=== PATIENT | female | born 1985 | race Two or more races ===

== ENCOUNTER 2023-01-03 04:02 | Emergency (ER) | payer MEDICAID ==
[~2023-01-03] VITALS: Ht 152.4 cm; Wt 68.0 kg
--- NOTE | 2023-01-03 04:35 | NUR ---
Dr. Whelan evaluating patient at bedside. MSE in progress.
[2023-01-03] MEDS ORDERED: HYDROCODONE/APAP 5-325MG TABLET ONE (04:54)
--- NOTE | 2023-01-03 04:59 | NUR ---
Lab at bedside.
[2023-01-03] MEDS ORDERED: HYDROCODONE/APAP 5-325MG TABLET PO ONE (05:00)
[2023-01-03 05:07] LABS: MEAN CORPUSCULAR VOLUME 87.8 fL (75.5-95.3); PLATELET COUNT (AUTO) 228 K/uL (179-408)
[2023-01-03 05:14] LABS: CREATININE 0.8 mg/dL (0.6-1.3); POTASSIUM 3.6 mmol/L (3.5-5.1)
--- NOTE | 2023-01-03 06:00 | NUR ---
Patient resting comfortably in bed, no signs of distress noted.
[2023-01-03] MEDS ORDERED: HYDR-3972 PO (06:24)
[2023-01-03] MEDS ORDERED: IBUP-1953 PO (06:24)
--- NOTE | 2023-01-03 07:01 | NUR ---
Report given to Randal ARMSTRONG
--- NOTE | 2023-01-03 08:55 | NUR ---
Gave pt breakfast tray to pt. Shortly afterwards, pt c/o sudden dizziness. Pt placed in trendelenberg, MD SHAMA informed.
[2023-01-03] MEDS ORDERED: IV NORMAL SALINE 1000 ML BAG IV ONE (09:15)
--- NOTE | 2023-01-03 10:20 | NUR ---
Pt sleeping in bed, no distress noted.
[2023-01-03] MEDS ORDERED: IBUPROFEN 400 MG TABLET PO ONE (12:45)
[2023-01-03] MEDS ORDERED: IBUPROFEN 400 MG TABLET ONE (12:52)
--- NOTE | 2023-01-03 12:55 | NUR ---
Removed IV intact, site okay, bandaged. Gave pt RX and d/c instructions, pt verbalized understanding.
[2023-01-03 12:56] VITALS: BP 113/74
== END 2023-01-03 12:58 | disposition home or self-care (01) ==
LOC: ER 04:02
DX: N64.4 Mastodynia (principal); N63.0 Unspecified lump in unspecified breast; Z88.8 Allergy status to other drugs, medicaments and biological substances; Z88.2 Allergy status to sulfonamides
CPT/HCPCS: 99284; 96360; 80048; 85025; 36415; 76642; J7040; A4663

== ENCOUNTER 2023-07-03 14:30 | Emergency (ER) | payer BC, MEDICAID ==
[~2023-07-03] VITALS: Ht 152.4 cm; Wt 72.6 kg
[~2023-07-03 14:30] MED LIST: HYDR-3972 PO; HYDR50CA PO; IBUP-1953 PO; PRED50TA PO
[2023-07-03 14:50] VITALS: O2SAT 100
[2023-07-03 15:58] LABS: BASOPHILS % (AUTO) 0.3 % (0.0-2.0); EOSINOPHILS # (AUTO) 0.2 K/uL (0.0-0.7); EOSINOPHILS % (AUTO) 2.6 % (0.0-7.0); HEMATOCRIT 36.4 % (31.2-41.9); LYMPHOCYTES # (AUTO) 1.6 K/uL (0.8-4.8); LYMPHOCYTES % (AUTO) 18.5 % (20.5-51.5); MEAN CORPUSCULAR HEMOGLOBIN 27.1 uug (24.7-32.8); MEAN CORPUSCULAR HGB CONC 33 g/dL (32.3-35.6); MEAN CORPUSCULAR VOLUME 82.5 fL (75.5-95.3); MONOCYTES # (AUTO) 0.6 K/uL (0.1-1.30); MONOCYTES % (AUTO) 6.7 % (0.0-11.0); NEUTROPHILS # (AUTO) 6.2 K/uL (1.8-8.9); NEUTROPHILS % (AUTO) 71.9 % (38.5-71.5); PLATELET COUNT (AUTO) 206 K/uL (179-408); RED BLOOD CELL COUNT(AUTO) 4.41 MIL/uL (3.63-4.92); RED CELL DISTRIBUTION WIDTH 15.2 % (12.3-17.7); WHITE BLOOD COUNT (AUTO) 8.6 K/uL (3.8-11.8)
[2023-07-03 16:21] LABS: DIFFERENTIAL COMMENT 1
[2023-07-03 16:22] LABS: CALCIUM 9.6 mg/dL (8.5-10.1); CARBON DIOXIDE 28 mmol/L (21-32); CHLORIDE 105 mmol/L (98-107); CREATININE 0.8 mg/dL (0.6-1.3); GLUCOSE 100 mg/dL (74-106); POTASSIUM 3.5 mmol/L (3.5-5.1); SODIUM SERUM 143 mmol/L (136-145); UREA NITROGEN, BLOOD 22 mg/dL (7-18)
[2023-07-03] MEDS ORDERED: CLINDAMYCIN HCL 150 MG CAPSULE PO ONE (16:30)
[2023-07-03 16:31] LABS: ALANINE AMINOTRANSFERASE 24 U/L (14-59); ALBUMIN 3.9 g/dL (3.4-5.0); ALKALINE PHOSPHATASE 71 U/L (50-136); ASPARTATE AMINOTRANSFERASE 14 U/L (15-37); BILIRUBIN,DIRECT 0.2 mg/dL (0.0-0.2); BILIRUBIN,TOTAL 0.7 mg/dL (0.2-1.0); TOTAL PROTEIN, SERUM 7.7 g/dL (6.4-8.2)
[2023-07-03] MEDS ORDERED: HYDROCODONE/APAP 5-325MG TABLET PO ONE ×2 (16:45→17:30)
[2023-07-03] MEDS ORDERED: CLINDAMYCIN HCL 300 MG CAPSULE ONE (16:49)
[2023-07-03] MEDS ORDERED: HYDROCODONE/APAP 5-325MG TABLET ONE ×2 (16:50→17:39)
[2023-07-03] MEDS ORDERED: CLIN300C12 PO (17:30)
[2023-07-03] MEDS ORDERED: HYDR-3980 PO (17:30)
== END 2023-07-03 18:10 | disposition home or self-care (01) ==
LOC: ER 14:30
DX: L08.9 Local infection of the skin and subcutaneous tissue, unspecified (principal); R07.89 Other chest pain; Z88.1 Allergy status to other antibiotic agents; Z88.2 Allergy status to sulfonamides; Z79.1 Long term (current) use of non-steroidal anti-inflammatories (NSAID); Z79.2 Long term (current) use of antibiotics; Z79.899 Other long term (current) drug therapy
CPT/HCPCS: 36415; 71045; 76642; 83605; 84484; 85025; 85730; 87040; A4606; A4663

== ENCOUNTER 2023-07-05 00:26 | Emergency (ER) | payer BC ==
[~2023-07-05] VITALS: Ht 149.9 cm; Wt 71.7 kg
[~2023-07-05 00:26] MED LIST changes: +CLIN300C12 PO; +HYDR-3980 PO
[2023-07-05] MEDS ORDERED: DEXAMETHASONE 0.5 MG/5 ML LIQ UDC PO ONE (01:00)
[2023-07-05] MEDS ORDERED: diphenhydrAMINE 50 MG CAPSULE PO ONE (01:00)
[2023-07-05] MEDS ORDERED: EPINEPHRINE 1 MG/1 ML 30 ML VIAL IM ONE ×2 (01:00→04:45)
[2023-07-05] MEDS ORDERED: FAMOTIDINE 20 MG TABLET PO ONE (01:00)
[2023-07-05] MEDS ORDERED: DEXAMETHASONE SOD PHOSPHATE 10 MG INJ ONE (01:32)
[2023-07-05] MEDS ORDERED: DEXAMETHASONE 4 MG TABLET ONE (01:49)
[2023-07-05] MEDS ORDERED: ACETAMINOPHEN ES 500 MG TABLET PO ONE (04:15)
[2023-07-05] MEDS ORDERED: EPINEPHRINE 1:10,000 1 MG/10 ML DISP.SYRIN ONE (05:11)
[2023-07-05] MEDS ORDERED: EPINEPHRINE-PF 1:1000 1 MG/ML AMPUL/VIAL ONE (05:14)
[2023-07-05] MEDS ORDERED: PRED20TA PO (06:06)
[2023-07-05] MEDS ORDERED: DIPH25TA25 PO (06:06)
[2023-07-05 06:14] VITALS: BP 139/74; O2SAT 95
== END 2023-07-05 06:15 | disposition home or self-care (01) ==
LOC: ER 00:29
DX: T78.3XXA Angioneurotic edema, initial encounter (principal); R22.0 Localized swelling, mass and lump, head; Z88.2 Allergy status to sulfonamides; Z88.8 Allergy status to other drugs, medicaments and biological substances; Z79.2 Long term (current) use of antibiotics; Z79.1 Long term (current) use of non-steroidal anti-inflammatories (NSAID); Z79.899 Other long term (current) drug therapy
CPT/HCPCS: 99284; 96372; J8540 ×2; Q0163; J0171 ×2; A4606; A4663; A9150; J1100

== ENCOUNTER 2023-08-22 12:09 | Inpatient (IN) | payer MEDICAID ==
[~2023-08-22] VITALS: Ht 152.4 cm; Wt 68.0 kg
[~2023-08-22 12:09] MED LIST changes: +DIPH25TA25 PO; +PRED20TA PO
[2023-08-22] MEDS ORDERED: HYDROMORPHONE 1 MG/1 ML DISP.SYRIN IV ONE ×4 (13:15→17:45)
[2023-08-22] MEDS ORDERED: IV NORMAL SALINE 1000 ML BAG IV ONE (13:15)
[2023-08-22] MEDS ORDERED: ONDANSETRON 4 MG/2 ML VIAL IV ONE (13:15)
[2023-08-22 13:33] LABS: BASOPHILS % (AUTO) 0.2 % (0.0-2.0); DIFFERENTIAL COMMENT 0; EOSINOPHILS % (AUTO) 0.1 % (0.0-7.0); HEMATOCRIT 37.9 % (31.2-41.9); HEMOGLOBIN 12.5 g/dL (10.9-14.3); LYMPHOCYTES # (AUTO) 0.7 K/uL (0.8-4.8); MEAN CORPUSCULAR HEMOGLOBIN 27.8 uug (24.7-32.8); MEAN CORPUSCULAR HGB CONC 33 g/dL (32.3-35.6); MEAN CORPUSCULAR VOLUME 84.4 fL (75.5-95.3); MONOCYTES # (AUTO) 0.2 K/uL (0.1-1.30); MONOCYTES % (AUTO) 1.6 % (0.0-11.0); NEUTROPHILS # (AUTO) 9.2 K/uL (1.8-8.9); NEUTROPHILS % (AUTO) 91.1 % (38.5-71.5); PLATELET COUNT (AUTO) 220 K/uL (179-408); RED BLOOD CELL COUNT(AUTO) 4.49 MIL/uL (3.63-4.92); RED CELL DISTRIBUTION WIDTH 15.1 % (12.3-17.7); WHITE BLOOD COUNT (AUTO) 10.1 K/uL (3.8-11.8)
[2023-08-22 13:51] LABS: ALBUMIN 4.1 g/dL (3.4-5.0); BILIRUBIN,DIRECT 0.2 mg/dL (0.0-0.2); BILIRUBIN,TOTAL 0.8 mg/dL (0.2-1.0); CREATININE 1.2 mg/dL (0.6-1.3); TOTAL PROTEIN, SERUM 7.7 g/dL (6.4-8.2)
[2023-08-22] MEDS ORDERED: ONDANSETRON 4 MG/2 ML VIAL ONE (14:04)
[2023-08-22] MEDS ORDERED: HYDROMORPHONE 1 MG/1 ML DISP.SYRIN ONE ×3 (14:04→17:48)
[2023-08-22 15:15] LABS: *BILIRUBIN,URIN NEGATIVE (NEGATIVE); *BLOOD, URINE 3+ (NEGATIVE); *CLARITY,URINE CLEAR (CLEAR); *COLOR,URINE YELLOW (YELLOW); *KETONES,URINE 2+ (NEGATIVE); *PROTEIN,URINE 1+ (NEGATIVE); *UROBILINOGEN,URINE 0.2 E.U./dl (NORMAL); LEUKOCYTE ESTERASE ,URINE NEGATIVE (NEGATIVE); NITRITE, URINE NEGATIVE (NEGATIVE); UGLUCOSE NEGATIVE (NEGATIVE)
[2023-08-22 15:23] LABS: BACTERIA,URINE FEW /HPF (NONE SEEN); RBC,URINE 80-100 /HPF (0-3); SQUAMOUS EPITHELIAL CELL,UR MODERATE /HPF (NONE SEEN)
[2023-08-22] MEDS ORDERED: KETOROLAC TROMETHAMINE 30 MG INJ ONE (15:25)
[2023-08-22] MEDS ORDERED: KETOROLAC TROMETHAMINE 30 MG INJ IVP ONE (15:30)
[2023-08-22] MEDS ORDERED: IV NS 1000 ML 1,000 ML IV ONE ×2 (15:30→17:45)
[2023-08-22] MEDS ORDERED: PROC-11 PO (16:05)
[2023-08-22] MEDS ORDERED: KETO10TA2 PO (16:05)
[2023-08-22] MEDS ORDERED: HYDR-3980 PO (16:05)
[2023-08-22] MEDS ORDERED: HYDROMORPHONE 2 MG/1 ML DISP.SYRIN ONE (16:21)
[2023-08-22] MEDS: GENTAMICIN SULFATE 20 MG/2 ML VIAL IV ONE ×2 (17:45→18:33)
[2023-08-22] MEDS ORDERED: diphenhydrAMINE 50 MG/1 ML VIAL IV ONE (17:45)
[2023-08-22] MEDS ORDERED: GENTAMICIN SULFATE 80 MG/2 ML VIAL ONE (17:47)
[2023-08-22] MEDS ORDERED: diphenhydrAMINE 50 MG/1 ML VIAL ONE (17:47)
[2023-08-22] MEDS ORDERED: GENTAMICIN SULFATE INJ 120 MG in IV DEXTROSE 5% 100 ML IV ONE (19:00)
[2023-08-22] MEDS ORDERED: TAMSULOSIN HCL 0.4 MG CAP.SR.24H PO ONE (19:30)
[2023-08-22] MEDS ORDERED: ONDANSETRON 4 MG/2 ML VIAL IV PRN (19:30)
[2023-08-22] MEDS ORDERED: MAGNESIUM HYDROXIDE 30 ML LIQUID UDC PO PRN (19:30)
[2023-08-22] MEDS ORDERED: REMEDY ESSENTIAL ZINC PASTE 113 GM TP PRN (19:30)
[2023-08-22] MEDS: MORPHINE SULFATE 2 MG/1 ML DISP.SYRIN IV PRN (21:12)
[2023-08-22 21:24] VITALS: BP 102/63; TEMP 98.5; O2SAT 100
[2023-08-22] MEDS: IV NS 1000 ML 1,000 ML IV PRN (22:25)
[2023-08-23] MEDS: HYDROCODONE/APAP 5-325MG TABLET PO PRN (00:09)
[2023-08-23] MEDS: MORPHINE SULFATE 2 MG/1 ML DISP.SYRIN IV PRN ×2 (03:43→15:39)
[2023-08-23 04:10] VITALS: BP 93/58; TEMP 98; O2SAT 93
[2023-08-23] MEDS: IV NS 1000 ML 1,000 ML IV PRN ×2 (06:47→18:46)
[2023-08-23 07:34] LABS: BASOPHILS % (AUTO) 0.5 % (0.0-2.0); EOSINOPHILS # (AUTO) 0.1 K/uL (0.0-0.7); EOSINOPHILS % (AUTO) 0.8 % (0.0-7.0); HEMATOCRIT 31.4 % (31.2-41.9); HEMOGLOBIN 10.6 g/dL (10.9-14.3); LYMPHOCYTES # (AUTO) 1.8 K/uL (0.8-4.8); MEAN CORPUSCULAR HEMOGLOBIN 28.7 uug (24.7-32.8); MEAN CORPUSCULAR HGB CONC 34 g/dL (32.3-35.6); MEAN CORPUSCULAR VOLUME 85.4 fL (75.5-95.3); MONOCYTES # (AUTO) 0.4 K/uL (0.1-1.30); MONOCYTES % (AUTO) 6.2 % (0.0-11.0); NEUTROPHILS % (AUTO) 63.5 % (38.5-71.5); PLATELET COUNT (AUTO) 186 K/uL (179-408); RED BLOOD CELL COUNT(AUTO) 3.68 MIL/uL (3.63-4.92); RED CELL DISTRIBUTION WIDTH 15.4 % (12.3-17.7); WHITE BLOOD COUNT (AUTO) 6.4 K/uL (3.8-11.8)
[2023-08-23 07:49] LABS: CALCIUM 7.6 mg/dL (8.5-10.1); CREATININE 1.3 mg/dL (0.6-1.3); PHOSPHOROUS 2.7 mg/dL (2.5-4.9); POTASSIUM 3.9 mmol/L (3.5-5.1)
[2023-08-23 08:11] LABS: DIFFERENTIAL COMMENT 1
[2023-08-23] MEDS: MEROPENEM 0.5 G in IV NORMAL SALINE 50 ML IV SCH ×2 (09:34→21:21)
[2023-08-23] MEDS: KETOROLAC TROMETHAMINE 15 MG INJ IVP PRN ×2 (09:38→17:55)
[2023-08-23] MEDS ORDERED: DEXTROSE 5% IV ONE (11:00)
[2023-08-23] MEDS ORDERED: GENTAMICIN SULFATE IV ONE (11:00)
[2023-08-23 11:38] VITALS: BP 111/61; TEMP 97.8; O2SAT 95
[2023-08-23 15:52] VITALS: BP 106/56; TEMP 98.5; O2SAT 97
[2023-08-23 16:21] LABS: *BILIRUBIN,URIN NEGATIVE (NEGATIVE); *BLOOD, URINE 2+ (NEGATIVE); *CLARITY,URINE CLEAR (CLEAR); *COLOR,URINE YELLOW (YELLOW); *KETONES,URINE NEGATIVE (NEGATIVE); *PROTEIN,URINE 1+ (NEGATIVE); *UROBILINOGEN,URINE 0.2 E.U./dl (NORMAL); LEUKOCYTE ESTERASE ,URINE NEGATIVE (NEGATIVE); NITRITE, URINE NEGATIVE (NEGATIVE); UGLUCOSE NEGATIVE (NEGATIVE)
[2023-08-23 16:28] LABS: *URINE HCG, QUAL NEGATIVE (NEGATIVE)
[2023-08-23 16:29] LABS: BACTERIA,URINE FEW /HPF (NONE SEEN); RBC,URINE 20-50 /HPF (0-3); SQUAMOUS EPITHELIAL CELL,UR FEW /HPF (NONE SEEN); WBC,URINE 0-3 /HPF (0-3)
[2023-08-23 19:00] VITALS: BP 105/59; TEMP 98.3
[2023-08-23] MEDS: TAMSULOSIN HCL 0.4 MG CAP.SR.24H PO SCH (21:21)
[2023-08-24] MEDS: MORPHINE SULFATE 2 MG/1 ML DISP.SYRIN IV PRN (02:43)
[2023-08-24 04:00] VITALS: BP 106/58; TEMP 98.3
[2023-08-24] MEDS: IV NS 1000 ML 1,000 ML IV PRN ×2 (07:26→18:03)
[2023-08-24 08:05] LABS: CREATININE 1.2 mg/dL (0.6-1.3); POTASSIUM 4.5 mmol/L (3.5-5.1)
[2023-08-24] MEDS: MEROPENEM 0.5 G in IV NORMAL SALINE 50 ML IV SCH ×2 (09:17→20:13)
[2023-08-24] MEDS: KETOROLAC TROMETHAMINE 15 MG INJ IVP PRN (09:25)
[2023-08-24 11:35] VITALS: BP 120/57; TEMP 97.8; O2SAT 97
[2023-08-24] MEDS ORDERED: KETOROLAC TROMETHAMINE 15 MG INJ IVP PRN (13:45)
[2023-08-24] MEDS ORDERED: MORPHINE SULFATE 2 MG/1 ML DISP.SYRIN IV PRN (14:30)
[2023-08-24 15:54] VITALS: BP 134/76; TEMP 98.4; O2SAT 98
[2023-08-24 20:00] VITALS: BP 119/67; TEMP 97.9; O2SAT 95
[2023-08-24] MEDS: TAMSULOSIN HCL 0.4 MG CAP.SR.24H PO SCH (20:12)
[2023-08-24] MEDS: DIAZEPAM 10 MG/2 ML DISP.SYRIN IV SCH (23:06)
[2023-08-24] MEDS: KETOROLAC TROMETHAMINE 15 MG INJ IVP SCH (23:07)
[2023-08-25] MEDS: IV NS 1000 ML 1,000 ML IV PRN ×2 (01:33→15:21)
[2023-08-25 04:00] VITALS: BP 135/62; TEMP 97.5; O2SAT 94
[2023-08-25] MEDS: KETOROLAC TROMETHAMINE 15 MG INJ IVP SCH ×3 (05:38→18:26)
[2023-08-25 07:39] LABS: BASOPHILS % (AUTO) 0.4 % (0.0-2.0); EOSINOPHILS # (AUTO) 0.3 K/uL (0.0-0.7); EOSINOPHILS % (AUTO) 4.7 % (0.0-7.0); HEMATOCRIT 32.4 % (31.2-41.9); HEMOGLOBIN 10.9 g/dL (10.9-14.3); LYMPHOCYTES # (AUTO) 1.7 K/uL (0.8-4.8); LYMPHOCYTES % (AUTO) 27.3 % (20.5-51.5); MEAN CORPUSCULAR HEMOGLOBIN 28.4 uug (24.7-32.8); MEAN CORPUSCULAR HGB CONC 34 g/dL (32.3-35.6); MEAN CORPUSCULAR VOLUME 84.6 fL (75.5-95.3); MONOCYTES # (AUTO) 0.3 K/uL (0.1-1.30); MONOCYTES % (AUTO) 4.5 % (0.0-11.0); NEUTROPHILS % (AUTO) 63.1 % (38.5-71.5); PLATELET COUNT (AUTO) 187 K/uL (179-408); RED BLOOD CELL COUNT(AUTO) 3.83 MIL/uL (3.63-4.92); RED CELL DISTRIBUTION WIDTH 15.2 % (12.3-17.7); WHITE BLOOD COUNT (AUTO) 6.4 K/uL (3.8-11.8)
[2023-08-25 07:41] LABS: CALCIUM 8.1 mg/dL (8.5-10.1); CREATININE 1.2 mg/dL (0.6-1.3); POTASSIUM 3.8 mmol/L (3.5-5.1)
[2023-08-25 07:44] LABS: DIFFERENTIAL COMMENT 1
[2023-08-25] MEDS: MEROPENEM 0.5 G in IV NORMAL SALINE 50 ML IV SCH ×2 (09:06→21:34)
[2023-08-25 11:16] VITALS: BP 135/74; TEMP 98.6; O2SAT 99
[2023-08-25] MEDS: ACETAMINOPHEN 325 MG TABLET PO PRN ×2 (12:26→22:01)
[2023-08-25] MEDS ORDERED: MORPHINE SULFATE 4 MG/1 ML DISP.SYRIN IV PRN (13:15)
[2023-08-25 15:46] VITALS: BP 141/81; TEMP 98.3; O2SAT 99
[2023-08-25 20:00] VITALS: BP 114/53; TEMP 99.7; O2SAT 100
[2023-08-25] MEDS: TAMSULOSIN HCL 0.4 MG CAP.SR.24H PO SCH (21:34)
[2023-08-25] MEDS: DIAZEPAM 10 MG/2 ML DISP.SYRIN IV SCH (21:34)
[2023-08-26] MEDS: KETOROLAC TROMETHAMINE 15 MG INJ IVP SCH ×4 (00:15→18:20)
[2023-08-26 04:00] VITALS: BP 150/75; TEMP 97.6; O2SAT 98
[2023-08-26] MEDS: IV NS 1000 ML 1,000 ML IV PRN ×2 (04:38→19:32)
[2023-08-26] MEDS: MEROPENEM 0.5 G in IV NORMAL SALINE 50 ML IV SCH ×2 (09:30→21:09)
[2023-08-26] MEDS ORDERED: MIDAZOLAM HCL 2 MG/2 ML VIAL ONE (11:04)
[2023-08-26] MEDS ORDERED: FENTANYL CITRATE 250 MCG/5 ML AMPUL ONE (11:04)
[2023-08-26] MEDS ORDERED: SUCCINYLCHOLINE CHLORIDE 200 MG/10 ML VIAL ONE ×2 (11:05→13:08)
[2023-08-26] MEDS ORDERED: FAMOTIDINE. 20 MG/2 ML VIAL IV ONE (11:05)
[2023-08-26] MEDS ORDERED: CLINDAMYCIN 600 MG PIGGYBACK**ER OMNI IV ONE (11:06)
[2023-08-26] MEDS ORDERED: IOHEXOL 300MG/ML 50 ML VIAL ONE (11:31)
[2023-08-26 11:35] VITALS: BP 159/89; TEMP 97.7; O2SAT 93
[2023-08-26] MEDS ORDERED: PROPOFOL 200 MG/20 ML BOTTLE ONE (13:08)
[2023-08-26] MEDS ORDERED: DEXAMETHASONE SOD PHOSPHATE 4 MG INJ ONE (13:08)
[2023-08-26] MEDS ORDERED: LIDOCAINE-MPF 2% 5 ML VIAL ONE (13:08)
[2023-08-26] MEDS ORDERED: METOCLOPRAMIDE HCL 10 MG/2 ML VIAL ONE (13:08)
[2023-08-26] MEDS ORDERED: ONDANSETRON 4 MG/2 ML VIAL ONE (13:08)
[2023-08-26 16:20] VITALS: BP 129/76; TEMP 97.8; O2SAT 96
[2023-08-26 20:00] VITALS: BP 135/71; TEMP 97.8; O2SAT 97
[2023-08-26] MEDS: HYDROCODONE/APAP 5-325MG TABLET PO PRN (20:13)
[2023-08-26] MEDS: TAMSULOSIN HCL 0.4 MG CAP.SR.24H PO SCH (20:47)
[2023-08-26] MEDS: DIAZEPAM 10 MG/2 ML DISP.SYRIN IV SCH (21:09)
[2023-08-27] MEDS: KETOROLAC TROMETHAMINE 15 MG INJ IVP SCH ×3 (00:38→12:34)
[2023-08-27] MEDS: HYDROCODONE/APAP 5-325MG TABLET PO PRN ×2 (03:03→09:16)
[2023-08-27 04:00] VITALS: BP 140/78; TEMP 98.4; O2SAT 98
[2023-08-27] MEDS: IV NS 1000 ML 1,000 ML IV PRN (05:54)
[2023-08-27 07:55] LABS: CALCIUM 8.8 mg/dL (8.5-10.1); CREATININE 0.9 mg/dL (0.6-1.3)
[2023-08-27] MEDS: MEROPENEM 0.5 G in IV NORMAL SALINE 50 ML IV SCH (09:17)
[2023-08-27 10:13] VITALS: BP 149/84; TEMP 97.7; O2SAT 100
[2023-08-27] MEDS ORDERED: HYDROCODONE/APAP 10-325 MG TABLET PO PRN (10:30)
[2023-08-27] MEDS ORDERED: TAMS-3 PO (14:19)
[2023-08-27] MEDS ORDERED: HYDR-3976 PO (14:19)
[2023-08-27] MEDS ORDERED: MEROPENEM 0.5 G in IV NORMAL SALINE 50 ML IV SCH (17:00)
== END 2023-08-27 16:20 | disposition home or self-care (01) | DRG 465 ==
LOC: ER 12:09 → MEDSURG3 20:24
PROVIDERS: ADMIT Nurse Practitioner Acute Care; ATTEND Nurse Practitioner Acute Care
PROC: 0T778DZ Dilation of Left Ureter with Intraluminal Device, Via Natural or Artificial Opening Endoscopic (ICD-10-PCS; principal; 2023-08-26)
DX: N13.2 Hydronephrosis with renal and ureteral calculous obstruction (principal); D25.9 Leiomyoma of uterus, unspecified; K80.20 Calculus of gallbladder without cholecystitis without obstruction; Z87.442 Personal history of urinary calculi; Z88.2 Allergy status to sulfonamides; K42.9 Umbilical hernia without obstruction or gangrene; D64.9 Anemia, unspecified
CPT/HCPCS: 36415; 74018; 76856; 83735; 84100; 84703; 85025; A4606; A4663; C1713; C1758; G0378; J0330; J1100; J1170; J1200; J1580; J1885; J2185; J2250; J2270; J2405; J2765; J3010; J3360; J3490; J7040; J7050; Q9967

== ENCOUNTER 2023-10-02 14:10 | Emergency (ER) | payer MEDICAID ==
[~2023-10-02] VITALS: Ht 149.9 cm; Wt 70.8 kg
[~2023-10-02 14:10] MED LIST changes: -CLIN300C12 PO; -HYDR-3972 PO; +HYDR-3976 PO; -HYDR-3980 PO; -PRED20TA PO; -PRED50TA PO; +TAMS-3 PO
[2023-10-02 14:25] VITALS: O2SAT 100
[2023-10-02 14:44] LABS: *BILIRUBIN,URIN NEGATIVE (NEGATIVE); *BLOOD, URINE 3+ (NEGATIVE); *CLARITY,URINE CLEAR (CLEAR); *COLOR,URINE YELLOW (YELLOW); *KETONES,URINE NEGATIVE (NEGATIVE); *PROTEIN,URINE 2+ (NEGATIVE); *UROBILINOGEN,URINE 0.2 E.U./dl (NORMAL); LEUKOCYTE ESTERASE ,URINE 1+ (NEGATIVE); NITRITE, URINE NEGATIVE (NEGATIVE); PH,URINE 5.5 (5.0-8.0); UGLUCOSE NEGATIVE (NEGATIVE)
[2023-10-02 16:19] LABS: BACTERIA,URINE MODERATE /HPF (NONE SEEN); RBC,URINE 20-50 /HPF (0-3); SQUAMOUS EPITHELIAL CELL,UR FEW /HPF (NONE SEEN); YEAST,URINE BUDDING YEAST /HPF (NONE SEEN)
[2023-10-02] MEDS ORDERED: FLUC200T8 PO (17:09)
[2023-10-02] MEDS ORDERED: FOSF3PAC GT (17:09)
[2023-10-02] MEDS ORDERED: TRIM100T PO (17:09)
[2023-10-02] MEDS ORDERED: CIPR500S2 PO (17:09)
[2023-10-09] MEDS ORDERED: CIPR500T5 PO (04:33)
[2023-10-09] MEDS ORDERED: PHEN-704 PO (04:33)
== END 2023-10-02 17:15 | disposition home or self-care (01) ==
LOC: ER 14:10
DX: N39.0 Urinary tract infection, site not specified (principal); Z79.899 Other long term (current) drug therapy; Z60.2 Problems related to living alone; Z88.2 Allergy status to sulfonamides; Z88.1 Allergy status to other antibiotic agents
CPT/HCPCS: A4606; A4663

== ENCOUNTER 2023-11-03 15:58 | Emergency (ER) | payer MEDICAID ==
[~2023-11-03] VITALS: Ht 152.4 cm; Wt 71.7 kg
[~2023-11-03 15:58] MED LIST changes: +CIPR500T5 PO; +FLUC200T8 PO; +PHEN-704 PO; +TRIM100T PO
[2023-11-03 18:23] LABS: BASOPHILS % (AUTO) 0.3 % (0.0-2.0); EOSINOPHILS # (AUTO) 0.2 K/uL (0.0-0.7); EOSINOPHILS % (AUTO) 1.9 % (0.0-7.0); HEMATOCRIT 37.7 % (31.2-41.9); HEMOGLOBIN 12.8 g/dL (10.9-14.3); LYMPHOCYTES # (AUTO) 1.5 K/uL (0.8-4.8); LYMPHOCYTES % (AUTO) 15.4 % (20.5-51.5); MEAN CORPUSCULAR HEMOGLOBIN 27.5 uug (24.7-32.8); MEAN CORPUSCULAR HGB CONC 34 g/dL (32.3-35.6); MONOCYTES # (AUTO) 0.6 K/uL (0.1-1.30); MONOCYTES % (AUTO) 5.8 % (0.0-11.0); NEUTROPHILS # (AUTO) 7.6 K/uL (1.8-8.9); NEUTROPHILS % (AUTO) 76.6 % (38.5-71.5); PLATELET COUNT (AUTO) 273 K/uL (179-408); RED BLOOD CELL COUNT(AUTO) 4.66 MIL/uL (3.63-4.92); RED CELL DISTRIBUTION WIDTH 13.7 % (12.3-17.7)
[2023-11-03 18:25] LABS: DIFFERENTIAL COMMENT 1
[2023-11-03 18:30] LABS: CALCIUM 9.2 mg/dL (8.5-10.1); CARBON DIOXIDE 26 mmol/L (21-32); CHLORIDE 106 mmol/L (98-107); CREATININE 0.8 mg/dL (0.6-1.3); GLUCOSE 105 mg/dL (74-106); POTASSIUM 3.7 mmol/L (3.5-5.1); SODIUM SERUM 143 mmol/L (136-145); UREA NITROGEN, BLOOD 18 mg/dL (7-18)
[2023-11-03] MEDS ORDERED: ONDANSETRON 4 MG/2 ML VIAL ONE (18:33)
[2023-11-03] MEDS ORDERED: MORPHINE SULFATE 2 MG/1 ML DISP.SYRIN ONE (18:34)
[2023-11-03] MEDS ORDERED: CLINDAMYCIN 600 MG PIGGYBACK**ER OMNI IV ONE (18:34)
[2023-11-03 18:43] LABS: ALANINE AMINOTRANSFERASE 18 U/L (14-59); ALBUMIN 3.9 g/dL (3.4-5.0); ALKALINE PHOSPHATASE 83 U/L (50-136); ASPARTATE AMINOTRANSFERASE 6 U/L (15-37); BILIRUBIN,DIRECT 0.1 mg/dL (0.0-0.2); BILIRUBIN,TOTAL 0.6 mg/dL (0.2-1.0); NT-PRO BNP 78 pg/mL (0-125); TOTAL PROTEIN, SERUM 8.1 g/dL (6.4-8.2)
[2023-11-03] MEDS: IV NORMAL SALINE 1000 ML BAG IV ONE (18:51)
[2023-11-03] MEDS: CLINDAMYCIN PHOSPHATE IV 600 MG in IV DEXTROSE 5% 100 ML IV ONE (18:51)
[2023-11-03] MEDS: MORPHINE SULFATE 2 MG/1 ML DISP.SYRIN IV ONE (18:52)
[2023-11-03] MEDS: ONDANSETRON 4 MG/2 ML VIAL IV ONE (18:52)
[2023-11-03] MEDS ORDERED: CLIN-118 PO (19:18)
[2023-11-03] MEDS ORDERED: KETOROLAC TROMETHAMINE 30 MG INJ ONE (20:08)
[2023-11-03] MEDS: KETOROLAC TROMETHAMINE 30 MG INJ IM ONE (20:16)
[2023-11-03 22:21] LABS: *BILIRUBIN,URIN NEGATIVE (NEGATIVE); *BLOOD, URINE 1+ (NEGATIVE); *COLOR,URINE YELLOW (YELLOW); *KETONES,URINE TRACE (NEGATIVE); *PROTEIN,URINE TRACE (NEGATIVE); *UROBILINOGEN,URINE 0.2 E.U./dl (NORMAL); LEUKOCYTE ESTERASE ,URINE TRACE (NEGATIVE); NITRITE, URINE NEGATIVE (NEGATIVE); UGLUCOSE NEGATIVE (NEGATIVE)
[2023-11-03 22:22] LABS: *CLARITY,URINE SLIGHTLY CLOUDY (CLEAR)
[2023-11-03 22:58] LABS: *AMPHETAMINE, URINE NEGATIVE (NEGATIVE); *BARBITURATE, URINE NEGATIVE (NEGATIVE); *BENZODIAZEPINE, URINE NEGATIVE (NEGATIVE); *CANNABINOID, URINE NEGATIVE (NEGATIVE); *COCCAINE, URINE NEGATIVE (NEGATIVE); *OPIATE, URINE NEGATIVE (NEGATIVE); *PHENCYCLIDINE SCREEN,URINE NEGATIVE (NEGATIVE); FENTANYL, URINE NEGATIVE (NEGATIVE)
[2023-11-03 23:20] LABS: BACTERIA,URINE MANY /HPF (NONE SEEN); RBC,URINE 0-3 /HPF (0-3); SQUAMOUS EPITHELIAL CELL,UR MODERATE /HPF (NONE SEEN)
[2023-11-03 23:21] LABS: URIC ACID CRYSTALS,URINE RARE /HPF (NONE SEEN)
[2023-11-03 23:23] VITALS: BP 120/83; O2SAT 100
== END 2023-11-03 23:00 | disposition home or self-care (01) ==
LOC: ER 15:59
DX: L03.116 Cellulitis of left lower limb (principal); Z79.899 Other long term (current) drug therapy; Z60.2 Problems related to living alone; Z88.2 Allergy status to sulfonamides; Z88.5 Allergy status to narcotic agent
CPT/HCPCS: 99285; 96365; 71045; 96375; 80076; 80048; 83880; 85025; 84145; 85730; 87040 ×2; 84484; 36415; 93005; 96372; 83605; 80307; 81001; J3490 ×2; J1885; J2405; J2270; J7040; A4606; A4663

== ENCOUNTER 2024-01-09 02:32 | Emergency (ER) | payer MEDICAID ==
[~2024-01-09] VITALS: Ht 157.5 cm; Wt 71.7 kg
[~2024-01-09 02:32] MED LIST changes: +CLIN-118 PO
[2024-01-09 03:35] LABS: BASOPHILS % (AUTO) 0.3 % (0.0-2.0); EOSINOPHILS # (AUTO) 0.2 K/uL (0.0-0.7); EOSINOPHILS % (AUTO) 2.5 % (0.0-7.0); HEMATOCRIT 32.2 % (31.2-41.9); HEMOGLOBIN 10.8 g/dL (10.9-14.3); LYMPHOCYTES # (AUTO) 2.1 K/uL (0.8-4.8); MEAN CORPUSCULAR HEMOGLOBIN 27.2 uug (24.7-32.8); MEAN CORPUSCULAR HGB CONC 34 g/dL (32.3-35.6); MEAN CORPUSCULAR VOLUME 81.3 fL (75.5-95.3); MONOCYTES # (AUTO) 0.5 K/uL (0.1-1.30); MONOCYTES % (AUTO) 6.1 % (0.0-11.0); NEUTROPHILS # (AUTO) 4.7 K/uL (1.8-8.9); NEUTROPHILS % (AUTO) 63.1 % (38.5-71.5); PLATELET COUNT (AUTO) 224 K/uL (179-408); RED BLOOD CELL COUNT(AUTO) 3.96 MIL/uL (3.63-4.92); RED CELL DISTRIBUTION WIDTH 14.8 % (12.3-17.7); WHITE BLOOD COUNT (AUTO) 7.5 K/uL (3.8-11.8)
[2024-01-09 03:39] LABS: DIFFERENTIAL COMMENT 1
[2024-01-09] MEDS ORDERED: ONDANSETRON ODT 4 MG TAB.RAPDIS ONE (03:40)
[2024-01-09] MEDS ORDERED: TRAMADOL HCL 50 MG TABLET ONE (03:40)
[2024-01-09] MEDS ORDERED: AMOXICILLIN-CLAVUL 875-125MG TABLET ONE (03:40)
[2024-01-09] MEDS: AMOXICILLIN-CLAVUL 875-125MG TABLET PO ONE (03:41)
[2024-01-09] MEDS: ONDANSETRON ODT 4 MG TAB.RAPDIS SL ONE (03:41)
[2024-01-09] MEDS: TRAMADOL HCL 50 MG TABLET PO ONE (03:45)
[2024-01-09 03:50] LABS: CALCIUM 8.7 mg/dL (8.5-10.1); CREATININE 0.8 mg/dL (0.6-1.3); POTASSIUM 3.2 mmol/L (3.5-5.1)
[2024-01-09 03:56] LABS: ALBUMIN 3.5 g/dL (3.4-5.0); BILIRUBIN,TOTAL 0.5 mg/dL (0.2-1.0); TOTAL PROTEIN, SERUM 6.9 g/dL (6.4-8.2)
[2024-01-09 04:11] LABS: C-REACTIVE PROTEIN 0.9 mg/dL (0.00-0.30)
[2024-01-09] MEDS ORDERED: AMOX-430 PO (05:11)
[2024-01-09] MEDS ORDERED: IBUP-1955 PO (05:11)
[2024-01-09 05:22] VITALS: BP 131/68; TEMP 98.2; O2SAT 97
== END 2024-01-09 05:22 | disposition home or self-care (01) ==
LOC: ER 02:34
DX: N75.0 Cyst of Bartholin's gland (principal); K08.89 Other specified disorders of teeth and supporting structures; L98.499 Non-pressure chronic ulcer of skin of other sites with unspecified severity; Z79.899 Other long term (current) drug therapy; Z60.2 Problems related to living alone; Z88.2 Allergy status to sulfonamides; Z88.5 Allergy status to narcotic agent
CPT/HCPCS: 36415; 85025; 86140; A4606; A4663; Q0162

== ENCOUNTER 2024-03-11 20:20 | Emergency (ER) | payer MEDICAID ==
[~2024-03-11] VITALS: Ht 152.4 cm; Wt 68.0 kg
[~2024-03-11 20:20] MED LIST changes: +AMOX-430 PO; +IBUP-1955 PO; +LINE600T15 PO; +NITR-84 PO
[2024-03-11] MEDS ORDERED: CLINDAMYCIN HCL 150 MG CAPSULE ONE (21:36)
[2024-03-11] MEDS ORDERED: CLIN-118 PO (21:37)
[2024-03-11] MEDS: CLINDAMYCIN HCL 150 MG CAPSULE PO ONE (21:38)
[2024-03-11 21:42] VITALS: BP 127/72; TEMP 98.6; O2SAT 100
== END 2024-03-11 21:44 | disposition home or self-care (01) ==
LOC: ER 20:41
DX: L03.115 Cellulitis of right lower limb (principal); Z79.891 Long term (current) use of opiate analgesic; Z79.899 Other long term (current) drug therapy; Z60.2 Problems related to living alone; Z88.2 Allergy status to sulfonamides; Z88.1 Allergy status to other antibiotic agents; Z88.5 Allergy status to narcotic agent
CPT/HCPCS: A4606; A4663

== ENCOUNTER 2024-06-10 13:49 | Emergency (ER) | payer MEDICAID ==
[~2024-06-10] VITALS: Ht 149.9 cm; Wt 71.7 kg
[2024-06-10] MEDS ORDERED: IBUP-1955 PO (14:15)
[2024-06-10] MEDS ORDERED: PRED20TA PO (14:15)
[2024-06-10 14:24] VITALS: BP 145/80; TEMP 97.8; O2SAT 98
== END 2024-06-10 14:24 | disposition home or self-care (01) ==
LOC: ER 13:49
DX: J02.9 Acute pharyngitis, unspecified (principal); J06.9 Acute upper respiratory infection, unspecified; Z79.899 Other long term (current) drug therapy; Z88.5 Allergy status to narcotic agent; Z88.2 Allergy status to sulfonamides; Z88.1 Allergy status to other antibiotic agents
CPT/HCPCS: A4606; A4663

== ENCOUNTER 2024-12-05 13:31 | Emergency (ER) | payer MEDICAID ==
[~2024-12-05] VITALS: Ht 157.5 cm; Wt 63.5 kg
[~2024-12-05 13:31] MED LIST changes: +PRED20TA PO
[2024-12-05] MEDS ORDERED: METOCLOPRAMIDE HCL 10 MG/2 ML VIAL ONE (14:01)
[2024-12-05] MEDS ORDERED: diphenhydrAMINE 50 MG/1 ML VIAL ONE (14:01)
[2024-12-05] MEDS ORDERED: KETOROLAC TROMETHAMINE 30 MG INJ ONE (14:01)
[2024-12-05] MEDS: KETOROLAC TROMETHAMINE 30 MG INJ IVP ONE (14:20)
[2024-12-05] MEDS: METOCLOPRAMIDE HCL 10 MG/2 ML VIAL IV ONE (14:20)
[2024-12-05] MEDS: diphenhydrAMINE 50 MG/1 ML VIAL IV ONE (14:20)
[2024-12-05] MEDS ORDERED: METO-295 PO (15:27)
[2024-12-05] MEDS ORDERED: IBUP-1955 PO (15:27)
[2024-12-05 15:50] VITALS: BP 139/72; O2SAT 99
== END 2024-12-05 15:51 | disposition home or self-care (01) ==
LOC: ER 13:31
DX: G44.209 Tension-type headache, unspecified, not intractable (principal); R11.2 Nausea with vomiting, unspecified; Z79.52 Long term (current) use of systemic steroids; Z88.1 Allergy status to other antibiotic agents; Z88.2 Allergy status to sulfonamides; Z88.5 Allergy status to narcotic agent; Z87.42 Personal history of other diseases of the female genital tract; Z60.2 Problems related to living alone
CPT/HCPCS: 99284; 96374; 96375; J1885; J1200; J2765; A4606; A4663